=== PATIENT | female | born 1975 | race Caucasian/White ===

== ENCOUNTER 2016-11-23 15:52 | Emergency (ER) | payer MEDICAID ==
--- NOTE | 2016-11-23 16:32 | ED Physician Chart ---
Chief Complaint/HPI - Patient Information Date Seen:: 11/23/16 Time Seen:: 16:10 Chief Complaint:: left low back pain History of Present Illness:: onset 4 days ago of left low back pain. Denies trauma. No dysuria, chills, fever. Allergies:: Allergies Allergy/AdvReac Type Severity Reaction Status Date / Time No Known Allergies Allergy Verified 08/16/16 00:04 Vitals:: Vital Signs - 8 hr 11/23/16 16:01 Temp 98.5 F HR 87 RR 16 BP 150/90 Historian:: Patient Review:: Nurse's Note Reviewed Review of Systems - Review of Systems General/Constitutional: No fever, No chills Skin: No skin lesions Head: No headache Eyes: No loss of vision ENT: No earache Neck: No neck pain, No swelling Cardio Vascular: No chest pain Pulmonary: No SOB GI: No nausea, No vomiting G/U: No dysuria, No hematuria Musculoskeletal: Back pain Endocrine: No polyuria, No polydipsia Psychiatric: Prior psych history Hematopoietic: No bruising Neurological: No syncope Past Medical History - Past Medical History Past Medical History: HTN, Other (anxiety; vertigo) Family History: HTN Social History: Smoker, Other (smokes 3 cigarets per day) Surgical History: Appendectomy, other (tubal ligation) Psychiatricy History: Other (anxiety) Medication: Reviewed Family Medical History - Family Member Father Ethnicity: Living Status: Still Living Hx Family Hypertension: Yes Hx Family Diabetes: Yes Mother Ethnicity: Living Status: Still Living Hx Family Cancer: Yes (BREAST) Physical Exam - Physical Examination General/Constitutional: Well-developed, well-nourished, Alert, No distress Head: Atraumatic Eyes: Lids, conjuctiva normal, PERRL Skin: Nl inspection, No rash ENMT: External ears, nose nl, TM canals nl, Nasal exam nl, Lips, teeth, gums nl , Oropharynx nl, Tonsils nl Neck: No nuchal rigidity Respiratory: Nl effort/Exclusion, Clear to Auscultation, No Wheeze/Rhonchi/Rales Cardio Vascular: RRR, No murmur, gallop, rubs, NL S1 S2 GI: No tenderness/rebounding/guarding, No organomegaly, No hernia, Normal BS's : No CVA tenderness Extremities: No tenderness or effusion Other Extremities comments:: straight leg raising of 90 degrees bilaterally Other Neuro/Psych comments:: DTRs: knees 1.4; ankles 2/4 Misc: Normal back Labs/Radiology/EKG Results - Lab Results Results: Laboratory Results - last 24 hr 11/23/16 11/23/16 16:10 16:10 Urine Source CLEAN C Urine Color YELLOW Urine Clarity HAZY Urine pH 6.5 Ur Specific [place] 1.025 Urine Protein NEGATIVE Urine Glucose (UA) NEGATIVE Urine Ketones TRACE Urine Blood TRACE Urine Nitrate NEGATIVE Urine Bilirubin NEGATIVE Urine Urobilinogen 1.0 Ur Leukocyte Esterase NEGATIVE Urine RBC 2-5 Urine WBC 0-2 Ur Epithelial Cells MODERATE Urine Bacteria NONE SEEN Urine Test NEGATIVE Assessment - Assessment General Assessment: at 1800 patient's pain is improved. ED Septic Shock - . Is Septic Shock (SBP<90, OR Lactate>4 mmol\L) present?: No - <6hrs of presentation: Vital Signs: Vital Signs - 8 hr 11/23/16 16:01 Temp 98.5 F HR 87 RR 16 BP 150/90 Reassessment (Disposition) - Reassessment Reassessment Condition:: Improved - Diagnosis Diagnosis:: Musculoskeletal back pain - Aftercare/Follow up Instructions Aftercare/Follow-Up Instructions:: Refer to Discharge Instructions - Patient Disposition Discharge/Transfer:: Home Condition at Disposition:: Stable, Improved
[2016-11-23 17:33] LABS: URINE BILIRUBIN NEGATIVE (NEGATIVE); URINE BLOOD TRACE (NEGATIVE); URINE COLOR YELLOW; URINE GLUCOSE (UA) NEGATIVE (NEGATIVE); URINE KETONE TRACE mg/dL (NEGATIVE); URINE PH 6.5; URINE PROTEIN NEGATIVE (NEGATIVE)
[2016-11-23 17:34] LABS: URINE BACTERIA NONE SEEN /hpf (NONE SEEN); URINE EPITHELIAL CELLS MODERATE /lpf (FEW); URINE WBC 0-2 /hpf (0-5)
== END 2016-11-23 18:20 | disposition home or self-care (01) ==
LOC: ER 15:52
DX: M54.9 Dorsalgia, unspecified (principal); I10 Essential (primary) hypertension; F41.9 Anxiety disorder, unspecified; F17.210 Nicotine dependence, cigarettes, uncomplicated
CPT/HCPCS: 99283; 96372; 81001; 81025; J1885; Z7502

== ENCOUNTER 2016-12-11 10:01 | Emergency (ER) | payer MEDICAID ==
--- NOTE | 2016-12-11 10:36 | ED Physician Chart ---
Chief Complaint/HPI - Patient Information Date Seen:: 12/11/16 Time Seen:: 10:11 Chief Complaint:: back pain History of Present Illness:: This is a 41 yr old female with right lower back pain. The back pain started this am and she has been having back problems since she was a child. The denies any recent fall or lifting that would cause her back to start hurting again. She states she hypertension but not taking mediation for it. Allergies:: Allergies Allergy/AdvReac Type Severity Reaction Status Date / Time No Known Allergies Allergy Verified 12/11/16 10:06 Vitals:: Vital Signs - 8 hr 12/11/16 10:05 Temp 96.5 F HR 112 RR 18 BP 149/99 O2 Sat % 98 Historian:: Patient, Medical Records Review:: Nurse's Note Reviewed, Old Chart Reviewed Review of Systems - Review of Systems General/Constitutional: No fever, No chills, No weight loss, No weakness, No diaphoresis, No edema, No loss of appetite Skin: No skin lesions, No rash, No bruising Head: No headache, No light-headedness Eyes: No loss of vision, No pain, No diplopia ENT: No earache, No nasal drainage, No sore throat, No tinnitus Neck: No neck pain, No swelling, No thyromegaly, No stiffness, No mass noted Cardio Vascular: No chest pain, No palpitations, No PND, No orthopnea, No edema Pulmonary: No SOB, No cough, No sputum, No wheezing GI: No nausea, No vomiting, No diarrhea, No pain, No melena, No hematochezia, No constipation, No hematemesis G/U: No dysuria, No frequency, No hematuria Musculoskeletal: No bone or joint pain, Back pain, No muscle pain Endocrine: No polyuria, No polydipsia Psychiatric: No prior psych history, No depression, No anxiety, No suicidal ideation Hematopoietic: No bruising, No lymphadenopathy Allergic/Immuno: No urticaria, No angioedema Neurological: No syncope, No focal symptoms, No weakness, No paresthesia, No headache, No seizure, No dizziness, No confusion, No vertigo Past Medical History - Past Medical History Obtainable: Yes Past Medical History: HTN Family History: Heart disease, Diabetes Melitus, HTN, Other ( hypercholesterolemia) Social History: Smoker, No Alcohol, Illicit Drug Use Surgical History: Appendectomy, other (tubalization) Psychiatricy History: Other (anxiety) Medication: Reviewed Family Medical History - Family Member Father History Unknown: Yes Ethnicity: Living Status: Still Living Hx Family Hypertension: Yes Hx Family Diabetes: Yes Mother Ethnicity: Living Status: Still Living Hx Family Cancer: Yes (BREAST) Physical Exam - Physical Examination General/Constitutional: Awake, Well-developed, well-nourished, Alert, No distress, GCS 15, Non-toxic appearing, Ambulatory Head: Atraumatic Eyes: Lids, conjuctiva normal, PERRL, EOMI Skin: Nl inspection, No rash, No skin lesions, No ecchymosis, Well hydrated, No lymphadenopathy ENMT: External ears, nose nl, Nasal exam nl, Lips, teeth, gums nl Neck: Nontender, Full ROM w/o pain, No JVD, No nuchal rigidity, No bruit, No mass, No stridor Respiratory: Nl effort/Exclusion, Clear to Auscultation, No Wheeze/Rhonchi/Rales Cardio Vascular: RRR, No murmur, gallop, rubs, NL S1 S2 GI: No tenderness/rebounding/guarding, No organomegaly, No hernia, Normal BS's, Nondistended, No mass/bruits, No McBurney tenderness : No CVA tenderness Extremities: No tenderness or effusion, Full ROM, normal strength in all extremities, No edema, Normal digits & nails Neuro/Psych: Alert/oriented, DTR's symmetric, Normal sensory exam, Normal motor strength, Judgement/insight normal, Mood normal, Normal gait, No focal deficits Misc: No paraspinal tenderness Other Misc comments:: There is tenderness in the L4 -S1 area on the right side. The range of motion in painful but normal. Labs/Radiology/EKG Results - Lab Results Results: Abnormal Lab Results 12/11/16 12/11/16 12/11/16 10:40 10:40 10:40 WBC 10.4 RBC 4.95 Hgb 14.8 Hct 42.9 MCV 86.6 MCH 29.8 MCHC Differential 34.5 RDW 12.2 Plt Count 372 MPV 8.6 Neutrophils % 69.9 Lymphocytes % 25.2 Monocytes % 3.4 Eosinophils % 1.5 Basophils % 0.0 Sodium Potassium Chloride Carbon Dioxide Anion Gap BUN Creatinine Est GFR ( Amer) Est GFR (Non-Af Amer) BUN/Creatinine Ratio Glucose Hemoglobin A1c % Calcium Total Bilirubin AST ALT Alkaline Phosphatase Total Protein Albumin Globulin Albumin/Globulin Ratio Triglycerides 175 H Cholesterol 170 LDL Cholesterol Direct 94 HDL Cholesterol 58 Urine Source CLEAN C Urine Color YELLOW Urine Clarity HAZY Urine pH 6.0 Ur Specific [place] 1.025 Urine Protein NEGATIVE Urine Glucose (UA) NEGATIVE Urine Ketones TRACE Urine Blood SMALL H Urine Nitrate NEGATIVE Urine Bilirubin SMALL H Urine Urobilinogen 1.0 Ur Leukocyte Esterase NEGATIVE Urine RBC 2-5 Urine WBC 0-2 Ur Epithelial Cells MANY Urine Bacteria FEW Urine Opiates Screen Ur Barbiturates Screen Ur Phencyclidine Scrn Amphetamines Screen U Methamphetamines Scrn U Benzodiazepines Scrn U Cocaine Metab Screen U Cannabinoids Screen 12/11/16 12/11/16 12/11/16 10:40 10:40 10:40 WBC RBC Hgb Hct MCV MCH MCHC Differential RDW Plt Count MPV Neutrophils % Lymphocytes % Monocytes % Eosinophils % Basophils % Sodium 133 L Potassium 3.7 Chloride 103 Carbon Dioxide 25.3 Anion Gap 8.4 BUN 11 Creatinine 0.7 Est GFR ( Amer) > 60.0 Est GFR (Non-Af Amer) > 60.0 BUN/Creatinine Ratio 15.7 Glucose 119 H Hemoglobin A1c % 5.3 Calcium 9.6 Total Bilirubin 0.6 AST 35 ALT 45 Alkaline Phosphatase 75 Total Protein 7.3 Albumin 4.1 Globulin 3.2 Albumin/Globulin Ratio 1.3 Triglycerides Cholesterol LDL Cholesterol Direct HDL Cholesterol Urine Source Urine Color Urine Clarity Urine pH Ur Specific [place] Urine Protein Urine Glucose (UA) Urine Ketones Urine Blood Urine Nitrate Urine Bilirubin Urine Urobilinogen Ur Leukocyte Esterase Urine RBC Urine WBC Ur Epithelial Cells Urine Bacteria Urine Opiates Screen NEGATIVE Ur Barbiturates Screen NEGATIVE Ur Phencyclidine Scrn NEGATIVE Amphetamines Screen POSITIVE H U Methamphetamines Scrn POSITIVE H U Benzodiazepines Scrn NEGATIVE U Cocaine Metab Screen NEGATIVE U Cannabinoids Screen POSITIVE H ED Septic Shock - . Is Septic Shock (SBP<90, OR Lactate>4 mmol\L) present?: No - <6hrs of presentation: Vital Signs: Vital Signs - 8 hr 12/11/16 10:05 Temp 96.5 F HR 112 RR 18 BP 149/99 O2 Sat % 98 Reassessment (Disposition) - Reassessment Reassessment Condition:: Improved - Diagnosis Diagnosis:: back pain drug abuse (meth/amphet) - Aftercare/Follow up Instructions Aftercare/Follow-Up Instructions:: Counseled pt regarding lab results/diagnosis & need follow up, Refer to Discharge Instructions, Counseled pt & family regarding lab results/diagnosis & need follow up - Patient Disposition Discharge/Transfer:: Home Condition at Disposition:: Improved ED Discharge Plan - Patient Disposition Admit/Discharge/Transfer: PT DISCHARGED HOME Condition at Disposition: Improved Prescriptions: Gabapentin [Neurontin] 600 mg PO Q8HR PRN #20 tablet PRN Reason: Pain (Mild) Instructions: Back Pain, Adult Accepting Physician: Erasmo Kay [Other] - 1-3 Days
[2016-12-11 10:58] LABS: URINE COLOR YELLOW; URINE GLUCOSE (UA) NEGATIVE (NEGATIVE)
[2016-12-11 10:59] LABS: % EOSINOPHILS 1.5 % (0.0-5.0); % LYMPHOCYTES 25.2 % (20.0-50.0); % MONOCYTES 3.4 % (2.0-10.0); % NEUTROPHILS 69.9 % (40.0-80.0); HEMATOCRIT 42.9 % (35.0-45.0); HEMOGLOBIN 14.8 gm/dL (11.7-15.5); MEAN CELL VOLUME 86.6 fl (81-100); MEAN CORPUSCULAR HEMOGLOBIN 29.8 pg (27.0-31.0); MEAN CORPUSCULAR HGB CONC 34.5 pg (28.0-36.0); MEAN PLATELET VOLUME 8.6 fl; NEUTROPHILE ABSOLUTE 7.2 Th/cmm (1.8-8.0); PLATELET COUNT 372 Th/cmm (150-400); RED BLOOD COUNT 4.95 Mil/cmm (3.80-5.10); RED CELL DISTRIBUTION WIDTH 12.2 % (11.5-20.0); URINE BILIRUBIN SMALL (NEGATIVE); URINE BLOOD SMALL (NEGATIVE); URINE KETONE TRACE mg/dL (NEGATIVE); URINE PROTEIN NEGATIVE (NEGATIVE); WHITE BLOOD COUNT 10.4 Th/cmm (4.8-10.8)
[2016-12-11 11:07] LABS: URINE BACTERIA FEW /hpf (NONE SEEN); URINE EPITHELIAL CELLS MANY /lpf (FEW); URINE WBC 0-2 /hpf (0-5)
[2016-12-11 11:15] LABS: AMPHETAMINE URINE POSITIVE (NEGATIVE); BARBITURATES URINE NEGATIVE (NEGATIVE)
[2016-12-11 11:16] LABS: ALB/GLOB RATIO 1.3 (1.0-1.8); ALKALINE PHOSPHATASE 75 U/L (34-104); ANION GAP 8.4 (7.0-16.0); BILIRUBIN,TOTAL 0.6 mg/dL (0.3-1.0); BUN - UREA NITROGEN 11 mg/dL (7-25); BUN/CREATININE RATIO 15.7; CALCIUM SERUM 9.6 mg/dL (8.6-10.3); CARBON DIOXIDE 25.3 mEq/L (21.0-31.0); CHLORIDE 103 mEq/L (98-107); CREATININE - SERUM 0.7 mg/dL (0.6-1.2); GLUCOSE 119 mg/dL (70-105); POTASSIUM SERUM 3.7 mEq/L (3.5-5.1); SGOT 35 U/L (13-39); SGPT/ALT 45 U/L (7-52); SODIUM SERUM 133 mEq/L (136-145)
[2016-12-11 11:17] LABS: CHOLESTEROL 170 mg/dL (<200); TRIGLYCERIDES 175 mg/dL (<150)
--- NOTE | 2016-12-11 11:39 | Diagnostic Imaging Report ---
CT scan lumbar spine HISTORY: Pain Total DLP equals 1301 CTDI equals 47.8 Axial sections were obtained through the lumbar spine. Additional sagittal and coronal reformatted images are provided. The exam of the L5-S1 level demonstrates narrowing of the disc interspace. Spur formation seen about the endplates with minimal encroachment on the anterior spinal canal. Alignment is normal. No other significant extradural abnormalities are seen. No acute abnormalities. No fractures. IMPRESSION: 1. No acute abnormalities 2. Degenerative changes somewhat most pronounced at L5-S1
== END 2016-12-11 12:02 | disposition home or self-care (01) ==
LOC: ER 10:01
DX: M54.5 Low back pain (principal); F15.10 Other stimulant abuse, uncomplicated; I10 Essential (primary) hypertension; F17.200 Nicotine dependence, unspecified, uncomplicated
CPT/HCPCS: 99285; 96372 ×2; 72131; 84484; 36415; 86780; 80300; 84443; 86592; 86593; 85025; 81001; 83036; 80053; 80061; J1885; J2930

== ENCOUNTER 2016-12-17 11:53 | Emergency (ER) | payer MEDICAID ==
--- NOTE | 2016-12-17 12:56 | ED Physician Chart ---
Chief Complaint/HPI - Patient Information Date Seen:: 12/17/16 Time Seen:: 12:30 Allergies:: Allergies Allergy/AdvReac Type Severity Reaction Status Date / Time No Known Allergies Allergy Verified 12/11/16 10:50 Vitals:: Vital Signs - 8 hr 12/17/16 12:27 Temp 97.8 F HR 97 RR 21 BP 143/82 O2 Sat % 98 Historian:: Patient, Family Member Review:: Nurse's Note Reviewed Review of Systems - Review of Systems General/Constitutional: Fever, No weight loss, Loss of appetite Skin: No rash Head: No headache Eyes: No loss of vision, No pain ENT: No earache, No sore throat, No tinnitus Neck: No neck pain, No stiffness Cardio Vascular: No chest pain, No palpitations Pulmonary: No SOB, No cough, No wheezing GI: Nausea, Vomiting, Diarrhea, Pain, No melena, No hematochezia, No hematemesis G/U: No dysuria, No frequency, No hematuria Substation Manager: No vaginal discharge, No abnormal vaginal bleed Musculoskeletal: Back pain, Muscle pain Psychiatric: Depression Hematopoietic: No bruising Allergic/Immuno: No urticaria Neurological: No syncope Past Medical History - Past Medical History Past Medical History: HTN, Other (fibromyalgia) Social History: Smoker, Single Surgical History: Appendectomy (BTL) Psychiatricy History: Depression Family Medical History - Family Member Father History Unknown: Yes (- ill contacts) Ethnicity: Living Status: Still Living Hx Family Hypertension: Yes Hx Family Diabetes: Yes Mother Ethnicity: Living Status: Still Living Hx Family Cancer: Yes (BREAST) Physical Exam - Physical Examination General/Constitutional: Awake, Alert, Non-toxic appearing Head: Atraumatic Eyes: PERRL, EOMI Skin: Nl inspection, No rash, No skin lesions, Well hydrated ENMT: Nasal exam nl, Lips, teeth, gums nl, Oropharynx nl, Tonsils nl Neck: Nontender, Full ROM w/o pain, No nuchal rigidity, No mass, No stridor Respiratory: Nl effort/Exclusion, Clear to Auscultation, No Wheeze/Rhonchi/Rales Cardio Vascular: RRR, No murmur, gallop, rubs, NL S1 S2 GI: No organomegaly, No hernia, Nondistended, No McBurney tenderness (BS reduced , soft, flat, mildly tender over midepigastrium) : No CVA tenderness Extremities: No tenderness or effusion, normal strength in all extremities, No edema, Normal digits & nails Neuro/Psych: Alert/oriented, Normal sensory exam, Normal motor strength, Judgement/insight normal, Mood normal, No focal deficits (mildly tender to percussion L4-5 bilat, mild) ED Septic Shock - . Is Septic Shock (SBP<90, OR Lactate>4 mmol\L) present?: No - <6hrs of presentation: Vital Signs: Vital Signs - 8 hr 12/17/16 12:27 Temp 97.8 F HR 97 RR 21 BP 143/82 O2 Sat % 98 Reassessment (Disposition) - Reassessment Reassessment Condition:: Improved - Diagnosis Diagnosis:: Nausea, vomit, diarrhea - Aftercare/Follow up Instructions Aftercare/Follow-Up Instructions:: Counseled pt regarding lab results/diagnosis & need follow up Medication Prescribed:: zofran 4mg ODT 1 on tongue q 4h prn nausea, immodium OTC. - Patient Disposition Discharge/Transfer:: Home
[2016-12-17 13:24] LABS: URINE BLOOD MODERATE (NEGATIVE); URINE COLOR YELLOW; URINE GLUCOSE (UA) NEGATIVE (NEGATIVE); URINE KETONE TRACE mg/dL (NEGATIVE); URINE PH 5.5; URINE PROTEIN TRACE mg/dL (NEGATIVE)
[2016-12-17 13:25] LABS: URINE BILIRUBIN SMALL (NEGATIVE); URINE EPITHELIAL CELLS MANY /lpf (FEW); URINE WBC 0-2 /hpf (0-5)
[2016-12-17 13:26] LABS: URINE BACTERIA MODERATE /hpf (NONE SEEN)
== END 2016-12-17 13:33 | disposition home or self-care (01) ==
LOC: ER 11:53
DX: R11.2 Nausea with vomiting, unspecified (principal); R19.7 Diarrhea, unspecified; I10 Essential (primary) hypertension; F17.200 Nicotine dependence, unspecified, uncomplicated
CPT/HCPCS: 99283; 81001; Q0162; Z7502

== ENCOUNTER 2017-05-29 20:29 | Emergency (ER) | payer MEDICAID ==
--- NOTE | 2017-05-29 21:09 | ED Physician Chart ---
Chief Complaint/HPI - Patient Information Date Seen:: 05/29/17 Time Seen:: 21:04 Chief Complaint:: dizzy History of Present Illness:: pt woke 2 am w felt ok but as soon as moved head felt vertiog sensation. pt had meclizine and tried it this am wo relief. pt had brief episdoe months ago that resolved after hrs. also pt had meclizine which was given to her after dizziness in past but no formal dx of vertigo was made and it wasnt clear if bp meds were the trouble. pt did take her bp med this am. she is not usually compliant w her regular meds. pt has hx of fibromylagia and has had inc muscle aches at left shldr/neck area lately. no fever, no sob. no cp. no palpitations. no focal weakness. some numbness in b shldrs (chronic, no acute change), no neck pain . no recent trauma. no MEDINA. no n/v/d. Allergies:: Allergies Allergy/AdvReac Type Severity Reaction Status Date / Time No Known Allergies Allergy Verified 12/11/16 10:50 Vitals:: Vital Signs - 8 hr 05/29/17 20:55 Temp 98.5 F HR 87 RR 18 BP 132/84 O2 Sat % 97 Historian:: Patient Review of Systems - Review of Systems General/Constitutional: No fever, No chills, No weight loss, No weakness, No diaphoresis, No edema, No loss of appetite Skin: No skin lesions, No rash, No bruising Head: No headache, No light-headedness, Other (dizzy worse w head mvt) Eyes: No loss of vision, No pain, No diplopia ENT: No earache, No nasal drainage, No sore throat, No tinnitus Neck: No neck pain, No swelling, No thyromegaly, No stiffness, No mass noted Cardio Vascular: No chest pain, No palpitations, No PND, No orthopnea, No edema Pulmonary: No SOB, No cough, No sputum, No wheezing GI: No nausea, No vomiting, No diarrhea, No pain, No melena, No hematochezia, No constipation, No hematemesis G/U: No dysuria, No frequency, No hematuria Musculoskeletal: No bone or joint pain, No back pain, No muscle pain Endocrine: No polyuria, No polydipsia Psychiatric: No prior psych history, No depression, No anxiety, No suicidal ideation Hematopoietic: No bruising, No lymphadenopathy Allergic/Immuno: No urticaria, No angioedema Neurological: No syncope, No focal symptoms, No weakness, No paresthesia, No headache, No seizure, No dizziness, No confusion, No vertigo Past Medical History - Past Medical History Past Medical History: HTN, Other (?prior vertigo) Social History: Smoker, No Alcohol Medication: Reviewed Family Medical History - Family Member Father History Unknown: Yes Ethnicity: Living Status: Still Living Hx Family Hypertension: Yes Hx Family Diabetes: Yes Mother Ethnicity: Living Status: Still Living Hx Family Cancer: Yes (BREAST) Physical Exam - Physical Examination General/Constitutional: Awake, Well-developed, well-nourished, Alert, No distress, GCS 15, Non-toxic appearing, Ambulatory Other Gen/Cons comments:: alert, dramatic. no focal neuro loss. nontoxic. eomi x 8 .. no obv nystagmus. neck supple. no rash. tm's clear bilat Head: Atraumatic Eyes: Lids, conjuctiva normal, PERRL, EOMI Skin: Nl inspection, No rash, No skin lesions, No ecchymosis, Well hydrated, No lymphadenopathy ENMT: External ears, nose nl, Nasal exam nl, Lips, teeth, gums nl Neck: Nontender, Full ROM w/o pain, No JVD, No nuchal rigidity, No bruit, No mass, No stridor Respiratory: Nl effort/Exclusion, Clear to Auscultation, No Wheeze/Rhonchi/Rales Cardio Vascular: RRR, No murmur, gallop, rubs, NL S1 S2 GI: No tenderness/rebounding/guarding, No organomegaly, No hernia, Normal BS's, Nondistended, No mass/bruits, No McBurney tenderness : No CVA tenderness Extremities: No tenderness or effusion, Full ROM, normal strength in all extremities, No edema, Normal digits & nails Neuro/Psych: Alert/oriented, DTR's symmetric, Normal sensory exam, Normal motor strength, Judgement/insight normal, Mood normal, Normal gait, No focal deficits Misc: normal gait, Normal back, No paraspinal tenderness Labs/Radiology/EKG Results - Lab Results Results: Laboratory Tests 05/29/17 05/29/17 05/29/17 21:11 21:11 21:11 WBC 10.5 RBC 4.92 Hgb 14.4 Hct 43.2 MCV 87.8 MCH 29.2 MCHC Differential 33.2 RDW 12.5 Plt Count 396 MPV 8.1 Neutrophils % 60.4 Lymphocytes % 25.4 Monocytes % 8.5 Eosinophils % 2.7 Basophils % 3.0 H Sodium 134 L Potassium 3.4 L Chloride 104 Carbon Dioxide 25.1 Anion Gap 8.3 BUN 11 Creatinine 0.8 Est GFR ( Amer) > 60.0 Est GFR (Non-Af Amer) > 60.0 BUN/Creatinine Ratio 13.8 Glucose 119 H Calcium 9.2 Total Bilirubin 0.4 AST 23 ALT 24 Alkaline Phosphatase 65 Troponin I 0.01 Total Protein 6.8 Albumin 3.8 Globulin 3.0 Albumin/Globulin Ratio 1.3 Urine Test 05/29/17 21:30 WBC RBC Hgb Hct MCV MCH MCHC Differential RDW Plt Count MPV Neutrophils % Lymphocytes % Monocytes % Eosinophils % Basophils % Sodium Potassium Chloride Carbon Dioxide Anion Gap BUN Creatinine Est GFR ( Amer) Est GFR (Non-Af Amer) BUN/Creatinine Ratio Glucose Calcium Total Bilirubin AST ALT Alkaline Phosphatase Troponin I Total Protein Albumin Globulin Albumin/Globulin Ratio Urine Test NEGATIVE - Radiology Results Results: ct head nad//rt maxillary sinusitus - EKG Interpretations EKG Time:: 21:15 Rate & Rhythm: nsr [address] [place]: 41 Intervals: qtc 447 Comments:: nrml ecg..early rt bbb changes. no acute injury or zoila arryhtmia ED Septic Shock - . Is Septic Shock (SBP<90, OR Lactate>4 mmol\L) present?: No - <6hrs of presentation: Vital Signs: Vital Signs - 8 hr 05/29/17 20:55 Temp 98.5 F HR 87 RR 18 BP 132/84 O2 Sat % 97 Reassessment (Disposition) - Reassessment Reassessment:: dw pt all results. pt still says is dizzy some. offered pt admission but she refuses says wants to try meclizine at home. she has a son at home so is not alone. no instability during ed stay. no neuro change. ct head ok. pt requested and was given a steroid shot which she says has helped her fibromyalgia in past. Reassessment Condition:: Improved - Diagnosis Diagnosis:: 1 vertigo 2 sinusitus 3 fibromyalgia - Aftercare/Follow up Instructions Aftercare/Follow-Up Instructions:: Counseled pt regarding lab results/diagnosis & need follow up Medication Prescribed:: rx meclizine, amox - Patient Disposition Discharge/Transfer:: Home Condition at Disposition:: Improved
[2017-05-29 21:17] LABS: % EOSINOPHILS 2.7 % (0.0-5.0); % LYMPHOCYTES 25.4 % (20.0-50.0); % MONOCYTES 8.5 % (2.0-10.0); % NEUTROPHILS 60.4 % (40.0-80.0); HEMATOCRIT 43.2 % (35.0-45.0); HEMOGLOBIN 14.4 gm/dL (11.7-15.5); MEAN CELL VOLUME 87.8 fl (81-100); MEAN CORPUSCULAR HEMOGLOBIN 29.2 pg (27.0-31.0); MEAN CORPUSCULAR HGB CONC 33.2 pg (28.0-36.0); MEAN PLATELET VOLUME 8.1 fl; NEUTROPHILE ABSOLUTE 6.3 Th/cmm (1.8-8.0); PLATELET COUNT 396 Th/cmm (150-400); RED BLOOD COUNT 4.92 Mil/cmm (3.80-5.10); RED CELL DISTRIBUTION WIDTH 12.5 % (11.5-20.0); WHITE BLOOD COUNT 10.5 Th/cmm (4.8-10.8)
[2017-05-29 21:35] LABS: ALB/GLOB RATIO 1.3 (1.0-1.8); ALKALINE PHOSPHATASE 65 U/L (34-104); ANION GAP 8.3 (7.0-16.0); BILIRUBIN,TOTAL 0.4 mg/dL (0.3-1.0); BUN - UREA NITROGEN 11 mg/dL (7-25); BUN/CREATININE RATIO 13.8; CALCIUM SERUM 9.2 mg/dL (8.6-10.3); CARBON DIOXIDE 25.1 mEq/L (21.0-31.0); CHLORIDE 104 mEq/L (98-107); CREATININE - SERUM 0.8 mg/dL (0.6-1.2); GLUCOSE 119 mg/dL (70-105); POTASSIUM SERUM 3.4 mEq/L (3.5-5.1); SGOT 23 U/L (13-39); SGPT/ALT 24 U/L (7-52); SODIUM SERUM 134 mEq/L (136-145)
[2017-05-29] MEDS ORDERED: methylPREDNISolone SS 40 mg Vial ONE (23:09)
--- NOTE | 2017-05-30 10:28 | Diagnostic Imaging Report ---
CT scan of the brain without contrast History: Dizziness Total DLP equals 631 CTDI equals 34.4 Axial sections were obtained from the base of the skull to the vertex. There is a normal ventricular system size. No focal parenchymal lesions are seen. No evidence of any mass effect or shift of midline structures. No extra-axial masses or abnormal fluid collections. Right maxillary sinusitis. Impression: Negative examination
== END 2017-05-29 23:35 | disposition home or self-care (01) ==
LOC: ER 20:29
DX: R42 Dizziness and giddiness (principal); J32.9 Chronic sinusitis, unspecified; M79.7 Fibromyalgia; I10 Essential (primary) hypertension; F17.200 Nicotine dependence, unspecified, uncomplicated
CPT/HCPCS: 99285; 96372; 96374; 93005; 70450; 84484; 36415; 85025; 81025; 80053; J2405; J2920

== ENCOUNTER 2017-09-20 06:15 | Emergency (ER) | payer MEDICAID ==
--- NOTE | 2017-09-20 07:28 | ED Physician Chart ---
ED Chief Complaint/HPI - Patient Information Date Seen:: 09/20/17 Time Seen:: 07:00 Chief Complaint:: hair loss History of Present Illness:: patient noted an asymptomatic bald spot on her scalp this am; does not know how long it's been there. Requests injection for her neck and back pain which which is secondary to her fibromyalgia. Allergies:: Allergies Allergy/AdvReac Type Severity Reaction Status Date / Time No Known Allergies Allergy Verified 12/11/16 10:50 Vitals:: Vital Signs - 8 hr 09/20/17 09/20/17 06:20 07:03 Temp 97.5 F 97.5 F HR 102 102 RR 19 16 BP 151/92 151/92 O2 Sat % 100 100 Historian:: Patient Review:: Nurse's Note Reviewed ED Review of Systems - Review of Systems General/Constitutional: No fever, No chills Skin: Skin lesions Head: No headache Eyes: No loss of vision ENT: No earache Neck: Neck pain Cardio Vascular: No chest pain, No palpitations Pulmonary: No SOB GI: No nausea, No vomiting G/U: No dysuria Musculoskeletal: Bone or joint pain, Back pain Psychiatric: No prior psych history, No depression, No anxiety Hematopoietic: No bruising Allergic/Immuno: No urticaria Neurological: No syncope ED Past Medical History - Past Medical History Past Medical History: HTN, Other (fibromyalgia) Family History: None Social History: Smoker, Other (smokes 3 cigarets per day) Surgical History: Appendectomy, other (tubal ligation) Psychiatricy History: None Medication: Reviewed Family Medical History - Family Member Father History Unknown: Yes Ethnicity: Non- Living Status: Still Living Hx Family Hypertension: Yes Hx Family Diabetes: Yes Mother Ethnicity: Living Status: Still Living Hx Family Cancer: Yes (BREAST) ED Physical Exam - Physical Examination General/Constitutional: Well-developed, well-nourished, Alert, No distress Head: Atraumatic Eyes: Lids, conjuctiva normal Other Skin comments:: 3 cm bald spot superior midline occiput ENMT: External ears, nose nl, TM canals nl, Nasal exam nl, Lips, teeth, gums nl , Oropharynx nl, Tonsils nl Neck: No nuchal rigidity Respiratory: Nl effort/Exclusion, Clear to Auscultation, No Wheeze/Rhonchi/Rales Cardio Vascular: RRR, No murmur, gallop, rubs GI: No tenderness/rebounding/guarding, No organomegaly, No hernia, Normal BS's : No CVA tenderness Extremities: Normal digits & nails Neuro/Psych: No focal deficits Misc: No paraspinal tenderness ED Septic Shock - . Is Septic Shock (SBP<90, OR Lactate>4 mmol\L) present?: No - <6hrs of presentation: Vital Signs: Vital Signs - 8 hr 09/20/17 09/20/17 06:20 07:03 Temp 97.5 F 97.5 F HR 102 102 RR 19 16 BP 151/92 151/92 O2 Sat % 100 100 ED Reassessment (Disposition) - Reassessment Reassessment Condition:: Unchanged (alopecia) - Diagnosis Diagnosis:: alopecia areata; musculoskeletal pain - Aftercare/Follow up Instructions Aftercare/Follow-Up Instructions:: Refer to Discharge Instructions Medication Prescribed:: aristocort 0.1% 15 gm tube ED Discharge Plan - Patient Disposition Instructions: Alopecia Areata
== END 2017-09-20 07:45 | disposition home or self-care (01) ==
LOC: ER 06:15
DX: L63.9 Alopecia areata, unspecified (principal); M79.1 Myalgia; I10 Essential (primary) hypertension; F17.210 Nicotine dependence, cigarettes, uncomplicated
CPT/HCPCS: 99283; 96372; J1885; Z7502

== ENCOUNTER 2018-06-17 23:12 | Emergency (ER) | payer MEDICAID ==
[2018-06-18 00:40] LABS: % BASOPHILS 0.4 % (0.0-2.0); % EOSINOPHILS 1.1 % (0.0-5.0); % LYMPHOCYTES 17.8 % (20.0-50.0); % MONOCYTES 7.5 % (2.0-10.0); % NEUTROPHILS 73.2 % (40.0-80.0); BASOPHILE ABSOLUTE 0.1 Th/cumm (0-0.2); EOSINOPHILE ABSOLUTE 0.1 Th/cmm (0.1-0.4); HEMATOCRIT 41.4 % (41.0-60); LYMPHOCYTE ABSOLUTE 2.3 Th/cmm (1.5-3.0); MEAN CELL VOLUME 89.3 fl (81-100); MEAN CORPUSCULAR HEMOGLOBIN 30.2 pg (27.0-31.0); MEAN CORPUSCULAR HGB CONC 33.8 pg (28.0-36.0); MEAN PLATELET VOLUME 7.8 fl; NEUTROPHILE ABSOLUTE 9.2 Th/cmm (1.8-8.0); PLATELET COUNT 364 Th/cmm (150-400); RED BLOOD COUNT 4.64 Mil/cmm (3.80-5.10); RED CELL DISTRIBUTION WIDTH 12.1 % (11.5-20.0); WHITE BLOOD COUNT 12.7 Th/cmm (4.8-10.8)
[2018-06-18 00:58] LABS: ALB/GLOB RATIO 1.3 (1.0-1.8); ALBUMIN 3.5 gm/dL (3.7-5.3); ALKALINE PHOSPHATASE 62 U/L (34-104); ANION GAP 10.2 (7.0-16.0); BILIRUBIN,TOTAL 0.4 mg/dL (0.3-1.0); BUN - UREA NITROGEN 9 mg/dL (7-25); CALCIUM SERUM 8.7 mg/dL (8.6-10.3); CHLORIDE 105 mEq/L (98-107); CREATININE - SERUM 0.8 mg/dL (0.6-1.2); GFR AFRICAN-AMERICAN > 60.0 ml/min (>90); GFR NON AFRICAN-AMERICAN > 60.0 ml/min; GLUCOSE 95 mg/dL (70-105); MAGNESIUM 1.9 mg/dL (1.9-2.7); POTASSIUM SERUM 3.2 mEq/L (3.5-5.1); SGOT 22 U/L (13-39); SGPT/ALT 29 U/L (7-52); SODIUM SERUM 136 mEq/L (136-145); TOTAL PROTEIN,SERUM 6.2 gm/dL (6.0-8.3)
[2018-06-18] MEDS ORDERED: Potassium Chloride 20 mEq ER Tab PO ONE ×2 (01:07→01:54)
[2018-06-18 01:26] LABS: URINE SOURCE CLEAN C
[2018-06-18 01:36] LABS: URINE BILIRUBIN NEGATIVE (NEGATIVE); URINE BLOOD SMALL (NEGATIVE); URINE GLUCOSE (UA) NEGATIVE (NEGATIVE); URINE KETONE NEGATIVE (NEGATIVE); URINE LEUKOCYTE ESTERASE NEGATIVE (NEGATIVE); URINE MICROSCOPIC INDICATED? YES; URINE NITRATE NEGATIVE (NEGATIVE); URINE PROTEIN NEGATIVE (NEGATIVE); URINE UROBILINOGEN 0.2 E.U./dL (0.2 - 1.0)
[2018-06-18 01:43] LABS: AMPHETAMINE URINE POSITIVE (NEGATIVE); BARBITURATES URINE NEGATIVE (NEGATIVE); COCAINE METABOLITE QUAL URINE NEGATIVE (NEGATIVE); METHAMPHETAMINES QUAL URINE POSITIVE (NEGATIVE); OPIATES (MORPHINE) QUAL. URINE NEGATIVE (NEGATIVE); PHENCYCLIDINE (PCP) URINE NEGATIVE (NEGATIVE); TRICYCLICS (TCA) QUAL. URINE NEGATIVE (NEGATIVE)
[2018-06-18 01:44] LABS: BENZODIAZEPINES QUAL URINE NEGATIVE (NEGATIVE); CANNABINOID THC POSITIVE (NEGATIVE); METHADONE URINE NEGATIVE (NEGATIVE)
[2018-06-18 01:45] LABS: URINE CLARITY CLEAR (CLEAR); URINE COLOR YELLOW
[2018-06-18 02:01] LABS: URINE BACTERIA FEW /hpf (NONE SEEN); URINE EPITHELIAL CELLS MODERATE /lpf (FEW); URINE WBC 0-2 /hpf (0-5)
--- NOTE | 2018-07-16 12:53 | ER Physician Documentation ---
DATE OF SERVICE: 06/18/2018 A#: [id number]. HISTORY OF PRESENT ILLNESS: The patient is otherwise healthy female who presented with complaint of diarrhea for 3 days and a sore throat for 1 day. She denies any nausea, vomiting or fever. Of note, the patient was recently released from being incarcerated. PAST MEDICAL HISTORY: Unremarkable except for methamphetamine and cannabis usage. PHYSICAL EXAMINATION: GENERAL: The patient is otherwise healthy, overweight female in no apparent distress. LUNGS: Clear to auscultation bilaterally. COR: Regular rate and rhythm. HEENT: Oropharynx has erythema with exudate present. NECK: Lymphadenopathy is present at the neck area bilaterally. No evidence of tonsillar abscess present. ABDOMEN: Benign. RECTAL: Performed, a small amount of stool on glove, sent to the lab, occult negative. EMERGENCY DEPARTMENT COURSE: A stool culture was written for. The patient was unable to give a stool culture while in the Emergency Room. Blood work was drawn, which included a white count, which came back elevated at 12.7 with potassium, which was low at 3.2. A strep culture was done and came back positive. Diarrhea, concern for infectious cause. I did wrote a prescription for stool culture and sensitivity, which she was advised to bring back before she starts any antibiotics. Hemoccult was also written for on the prescription and the patient was also given antibiotics for discharge, which included ciprofloxacin 500 mg 1 p.o. b.i.d. #20, Bactrim double strength 1 p.o. b.i.d. #20. She was given Bicillin in the ER. ASSESSMENT AND PLAN: 1. Presumed infectious diarrhea. 2. Strep throat. 3. Methamphetamine and cannabis use, which were positive on her drug screen. JOB# [id number]
== END 2018-06-18 02:45 | disposition home or self-care (01) ==
LOC: ER 23:12
DX: K52.9 Noninfective gastroenteritis and colitis, unspecified (principal); J02.0 Streptococcal pharyngitis; F12.10 Cannabis abuse, uncomplicated; F15.10 Other stimulant abuse, uncomplicated
CPT/HCPCS: 99284; 96372; 36415; 80307; 87081; 85025; 81025; 83735; 84100; 80053; 81001; J0561; Z7502

== ENCOUNTER 2018-07-03 23:31 | Emergency (ER) | payer MEDICAID ==
--- NOTE | 2018-07-04 00:17 | ED Physician Chart ---
ED Chief Complaint/HPI - Patient Information Date Seen:: 07/03/18 Time Seen:: 23:40 Chief Complaint:: Redness History of Present Illness:: onset x 2 days of left foot erythema, pain, redness, and swelling; pt denies trauma, LOC, ALOC, AMS, S/T, H/As, neck pain, cough, C/P, SOB, Abd. Pain, A/N/V/ D/C, fever, chills, or urinary s/s; pt's last tetanus shot: < 5 years; UTD; pt denies paresthesias, weakness, dizziness, gait changes, or vertigo Allergies:: Allergies Allergy/AdvReac Type Severity Reaction Status Date / Time No Known Allergies Allergy Verified 06/17/18 23:53 Historian:: Patient Review:: Nurse's Note Reviewed ED Review of Systems - Review of Systems General/Constitutional: No fever, No chills, No weight loss, No weakness, No diaphoresis, No edema, No loss of appetite Skin: No skin lesions, No rash, No bruising Head: No headache, No light-headedness Eyes: No loss of vision, No pain, No diplopia ENT: No earache, No nasal drainage, No sore throat, No tinnitus Neck: No neck pain, No swelling, No thyromegaly, No stiffness, No mass noted Cardio Vascular: No chest pain, No palpitations, No PND, No orthopnea, No edema Pulmonary: No SOB, No cough, No sputum, No wheezing GI: No nausea, No vomiting, No diarrhea, No pain, No melena, No hematochezia, No constipation, No hematemesis G/U: No dysuria, No frequency, No hematuria, No nacturia Operator Maintainer: No vaginal discharge, No abnormal vaginal bleed, No contraction Musculoskeletal: Bone or joint pain, No back pain, Muscle pain Endocrine: No polyuria, No polydipsia Psychiatric: No prior psych history, No depression, No anxiety, No suicidal ideation, No homicidal ideation, No auditory hallucination, No visual hallucination Hematopoietic: No bruising, No lymphadenopathy Allergic/Immuno: No urticaria, No angioedema Neurological: No syncope, No focal symptoms, No weakness, No paresthesia, No headache, No seizure, No dizziness, No confusion, No vertigo ED Past Medical History - Past Medical History Obtainable: Yes Past Medical History: Other (Fibromyalgia) Family History: HTN Social History: Non Smoker, No Alcohol, No Drug Use, Surgical History: None Psychiatricy History: None Medication: Reviewed Family Medical History - Family Member Father History Unknown: Yes Ethnicity: Non- Living Status: Still Living Hx Family Hypertension: Yes Hx Family Diabetes: Yes Mother Ethnicity: Living Status: Still Living Hx Family Cancer: Yes (BREAST) ED Physical Exam - Physical Examination General/Constitutional: Awake, Well-developed, well-nourished, Alert, No distress, GCS 15, Non-toxic appearing, Ambulatory Head: Atraumatic Eyes: Lids, conjuctiva normal, PERRL, EOMI Skin: Nl inspection, No rash, No skin lesions, No ecchymosis, Well hydrated, No lymphadenopathy Other Skin comments:: + Left Foot Localized Cellulitis at the dorsal middle MT region with mild tenderness; no loss of ROMs; no PWs; full active ROMs of all joints; no septic joints; no ligament instability; DTRs: 2+ bilaterally; Gait: WNL; good motor, tendon, and sensory functions; good NV functions ENMT: External ears, nose nl, TM canals nl, Nasal exam nl, Lips, teeth, gums nl , Oropharynx nl, Tonsils nl Neck: Nontender, Full ROM w/o pain, No JVD, No nuchal rigidity, No bruit, No mass, No stridor Other Neck comments:: supple; no meningeal signs; no cervical tenderness; no bruits Respiratory: Nl effort/Exclusion, Clear to Auscultation, No Wheeze/Rhonchi/Rales Cardio Vascular: RRR, No murmur, gallop, rubs, NL S1 S2, Carotid/Femoral/Distal pulses equal bilaterally GI: No tenderness/rebounding/guarding, No organomegaly, No hernia, Normal BS's, Nondistended, No mass/bruits, No McBurney tenderness, Rectum exam nl Other GI comments:: no pulsatile masses : No CVA tenderness Extremities: No tenderness or effusion, Full ROM, normal strength in all extremities, No edema, Normal digits & nails Other Extremities comments:: as above Neuro/Psych: Alert/oriented, DTR's symmetric, Normal sensory exam, Normal motor strength, Judgement/insight normal, Mood normal, Normal gait, No focal deficits Other Neuro/Psych comments:: no focal signs Misc: Normal back, No paraspinal tenderness ED Labs/Radiology/EKG Results - Radiology Results Comments:: X-Rays: deferred by pt ED Septic Shock - . Is Septic Shock (SBP<90, OR Lactate>4 mmol\L) present?: No ED Reassessment (Disposition) - Reassessment Reassessment:: pt is asymptomatic upon discharge Reassessment Condition:: Improved - Diagnosis Diagnosis:: Left Foot Pain; Localized Cellulitis; Left Foot Sprains and Strains; Left Foot Cellulitis - Aftercare/Follow up Instructions Aftercare/Follow-Up Instructions:: Counseled pt regarding lab results/diagnosis & need follow up, Refer to Discharge Instructions, Counseled pt & family regarding lab results/diagnosis & need follow up Medication Prescribed:: Rx: Keflex 500mg po qid x 10 days; Neosporin Ointment bid x 14 days; Warm Compresses/Heating Pads; Tylenol 500mg po qid prn fever/pain; Skin Care/Foot Care Instructions - Patient Disposition Discharge/Transfer:: Home Condition at Disposition:: Stable, Improved (RTER prn if existing s/s reoccur and/or get worse and/or any other new s/s occur; ACIs given for all above Dx; Refer to [employer]/Orthopedist/Vascular Surgeon/[employer] [facility]; F/U with PMD in one day or prn; RTER prn if concerned)
[2018-07-04] MEDS ORDERED: Morphine Sulfate 2 mg/mL 1mL Syr ONE (00:18)
[2018-07-04] MEDS: Morphine Sulfate 2 mg/mL 1mL Syr IM STA (00:21)
== END 2018-07-04 00:30 | disposition home or self-care (01) ==
LOC: ER 23:31
DX: L03.116 Cellulitis of left lower limb (principal); S93.602A Unspecified sprain of left foot, initial encounter; S96.912A Strain of unspecified muscle and tendon at ankle and foot level, left foot, initial encounter; X58.XXXA Exposure to other specified factors, initial encounter; Y93.89 Activity, other specified; Y92.89 Other specified places as the place of occurrence of the external cause; Y99.8 Other external cause status
CPT/HCPCS: 99283; 96372; J2270; Z7502

== ENCOUNTER 2018-10-30 12:45 | Emergency (ER) | payer MEDICAID ==
[2018-10-30] MEDS ORDERED: Morphine Sulfate 2 mg/mL 1mL Syr IV STA (13:04)
[2018-10-30] MEDS ORDERED: Morphine Sulfate 2 mg/mL 1mL Syr ONE (13:12)
[2018-10-30 13:50] LABS: INR 0.92 (0.5-1.4); PROTHROMBIN TIME (TEST) 9.6 SECONDS (9.5-11.5)
--- NOTE | 2018-10-30 13:51 | ED Physician Chart ---
ED Chief Complaint/HPI - Patient Information Date Seen:: 10/30/18 Time Seen:: 13:00 Chief Complaint:: Chest Pain History of Present Illness:: onset x 2 days of intermittent, heavy pressure exertional chest pain radiating to the upper back with sharp upper back pain with dyspnea and cough; pt denies trauma, LOC, ALOC, AMS, H/As, S/T, neck pain, Abd. Pain, A/N/V/D/C, fever, chills, or urinary s/s Allergies:: Allergies Allergy/AdvReac Type Severity Reaction Status Date / Time No Known Allergies Allergy Verified 06/17/18 23:53 Vitals:: Vital Signs - 8 hr 10/30/18 13:02 Temp 97.7 F HR 112 RR 16 BP 160/112 O2 Sat % 100 Historian:: Patient Review:: Nurse's Note Reviewed, Old Chart Reviewed ED Review of Systems - Review of Systems General/Constitutional: No fever, No chills, No weight loss, Weakness, No diaphoresis, No edema, No loss of appetite Skin: No skin lesions, No rash, No bruising Head: Headache, No light-headedness Eyes: No loss of vision, No pain, No diplopia ENT: No earache, No nasal drainage, No sore throat, No tinnitus Neck: No neck pain, No swelling, No thyromegaly, No stiffness, No mass noted Cardio Vascular: Chest pain, No palpitations, No PND, No orthopnea, No edema Pulmonary: SOB, Cough, No sputum, No wheezing GI: No nausea, No vomiting, No diarrhea, No pain, No melena, No hematochezia, No constipation, No hematemesis G/U: No dysuria, No frequency, No hematuria, No nacturia President And Ceo: No vaginal discharge, No abnormal vaginal bleed, No contraction Musculoskeletal: No bone or joint pain, No back pain, No muscle pain Endocrine: No polyuria, No polydipsia Psychiatric: No prior psych history, No depression, No anxiety, No suicidal ideation, No homicidal ideation, No auditory hallucination, No visual hallucination Hematopoietic: No bruising, No lymphadenopathy Allergic/Immuno: No urticaria, No angioedema Neurological: No syncope, No focal symptoms, Weakness, No paresthesia, Headache , No seizure, No dizziness, No confusion, No vertigo ED Past Medical History - Past Medical History Obtainable: Yes Past Medical History: HTN, Asthma/COPD, Arthritis Family History: HTN, Cancer Social History: Smoker, No Alcohol, No Drug Use, Surgical History: Appendectomy, other (BTL) Psychiatricy History: None Medication: Reviewed Family Medical History - Family Member Father History Unknown: Yes Ethnicity: Non- Living Status: Still Living Hx Family Hypertension: Yes Hx Family Diabetes: Yes Mother Ethnicity: Living Status: Still Living Hx Family Cancer: Yes (BREAST) ED Physical Exam - Physical Examination General/Constitutional: Awake, Well-developed, well-nourished, Alert, No distress, GCS 15, Non-toxic appearing, Ambulatory Head: Atraumatic Eyes: Lids, conjuctiva normal, PERRL, EOMI Skin: Nl inspection, No rash, No skin lesions, No ecchymosis, Well hydrated, No lymphadenopathy ENMT: External ears, nose nl, TM canals nl, Nasal exam nl, Lips, teeth, gums nl , Oropharynx nl, Tonsils nl Neck: Nontender, Full ROM w/o pain, No JVD, No nuchal rigidity, No bruit, No mass, No stridor Respiratory: Nl effort/Exclusion, Clear to Auscultation, No Wheeze/Rhonchi/Rales Cardio Vascular: RRR, No murmur, gallop, rubs, NL S1 S2, Carotid/Femoral/Distal pulses equal bilaterally GI: No tenderness/rebounding/guarding, No organomegaly, No hernia, Normal BS's, Nondistended, No mass/bruits, No McBurney tenderness : No CVA tenderness Extremities: No tenderness or effusion, Full ROM, normal strength in all extremities, No edema, Normal digits & nails Neuro/Psych: Alert/oriented, DTR's symmetric, Normal sensory exam, Normal motor strength, Judgement/insight normal, Mood normal, Normal gait, No focal deficits Misc: Normal back, No paraspinal tenderness ED Labs/Radiology/EKG Results - Lab Results Comments:: Reviewed - Radiology Results Comments:: NAD - EKG Interpretations EKG Time:: 13:38 Rate & Rhythm: 102; ST Comments:: LAD; non-specific st-t changes ED Septic Shock - . Is Septic Shock (SBP<90, OR Lactate>4 mmol\L) present?: No - <6hrs of presentation: Vital Signs: Vital Signs - 8 hr 10/30/18 13:02 Temp 97.7 F HR 112 RR 16 BP 160/112 O2 Sat % 100 ED Reassessment (Disposition) - Reassessment Reassessment Condition:: Improved - Diagnosis Diagnosis:: Tachycardia; Back Pain; Chest Pain; Hypertension; Dyspnea; Hypokalemia; Substance Abuse; UTI - Aftercare/Follow up Instructions Aftercare/Follow-Up Instructions:: Counseled pt regarding lab results/diagnosis & need follow up, Counseled pt & family regarding lab results/diagnosis & need follow up - Patient Disposition Discharge/Transfer:: Acute Care (other hosp) Accepting Physician:: Dr. Jhaveri Time Called:: 1500 Time Responded:: 15:00 Admitted to:: Telemetry Spoke to:: Dr. Jhaveri Admitting Medical Physician:: Dr. Jhaveri Condition at Disposition:: Stable, Improved (pt to be transferred via [facility] to [facility] as a direct admission to Telemetry Bed Unit )
[2018-10-30 13:53] LABS: BASOPHILE ABSOLUTE 0.4 Th/cumm (0-0.2); EOSINOPHILE ABSOLUTE 0.1 Th/cmm (0.1-0.4); HEMATOCRIT 47.5 % (41.0-60); HEMOGLOBIN 15.6 gm/dL (12-16); LYMPHOCYTE ABSOLUTE 1.5 Th/cmm (1.5-3.0); MEAN CELL VOLUME 87.9 fl (81-100); MEAN CORPUSCULAR HGB CONC 32.9 pg (28.0-36.0); MEAN PLATELET VOLUME 8.4 fl; MONOCYTE ABSOLUTE 0.9 Th/cmm (0.3-1.0); NEUTROPHILE ABSOLUTE 4.1 Th/cmm (1.8-8.0); PLATELET COUNT 335 Th/cmm (150-400); RED CELL DISTRIBUTION WIDTH 12.5 % (11.5-20.0)
[2018-10-30 13:55] LABS: % BASOPHILS 5.3 % (0.0-2.0); % EOSINOPHILS 0.8 % (0.0-5.0); % LYMPHOCYTES 21.5 % (20.0-50.0); % MONOCYTES 12.8 % (2.0-10.0); % NEUTROPHILS 59.6 % (40.0-80.0)
[2018-10-30 13:59] LABS: ALB/GLOB RATIO 1.1 (1.0-1.8); ALBUMIN 3.9 gm/dL (3.7-5.3); ALKALINE PHOSPHATASE 77 U/L (34-104); ANION GAP 11.6 (7.0-16.0); BILIRUBIN,TOTAL 0.4 mg/dL (0.3-1.0); BUN - UREA NITROGEN 13 mg/dL (7-25); CALCIUM SERUM 9.1 mg/dL (8.6-10.3); CARBON DIOXIDE 25.7 mEq/L (21.0-31.0); CHLORIDE 103 mEq/L (98-107); CHOLESTEROL 159 mg/dL (<200); CREATININE - SERUM 0.7 mg/dL (0.6-1.2); CREATININE KINASE 82 U/L (30-223); GFR AFRICAN-AMERICAN > 60.0 ml/min (>90); GFR NON AFRICAN-AMERICAN > 60.0 ml/min; GLUCOSE 93 mg/dL (70-105); HDL -HIGH DENSITY LIPOPROTEIN 60 mg/dL (23-92); POTASSIUM SERUM 3.3 mEq/L (3.5-5.1); SGOT 40 U/L (13-39); SGPT/ALT 49 U/L (7-52); SODIUM SERUM 137 mEq/L (136-145); TOTAL PROTEIN,SERUM 7.6 gm/dL (6.0-8.3); TRIGLYCERIDES 114 mg/dL (<150)
[2018-10-30 14:13] LABS: DDIMER QUANT 308 ng/mL (100-400)
[2018-10-30] MEDS ORDERED: Potassium Chloride 20 mEq ER Tab PO ONE ×2 (14:21→15:09)
[2018-10-30] MEDS ORDERED: Aspirin 81mg Chewable Tab PO STA (14:24)
[2018-10-30] MEDS ORDERED: NITROGLYCERIN OINT 2% 1 INCH PACKET TP STA (14:25)
[2018-10-30] MEDS ORDERED: IOHEXOL 350mgI/mL 150mL IV ONE (14:29)
[2018-10-30] MEDS ORDERED: NITROGLYCERIN OINT 2% 1 INCH PACKET TP ONE (15:08)
[2018-10-30] MEDS ORDERED: Aspirin 81mg Chewable Tab ONE (15:08)
[2018-10-30 16:29] LABS: URINE SOURCE RANDOM
[2018-10-30 16:34] LABS: URINE BILIRUBIN NEGATIVE (NEGATIVE); URINE BLOOD LARGE (NEGATIVE); URINE GLUCOSE (UA) NEGATIVE (NEGATIVE); URINE KETONE NEGATIVE (NEGATIVE); URINE LEUKOCYTE ESTERASE NEGATIVE (NEGATIVE); URINE MICROSCOPIC INDICATED? YES; URINE NITRATE NEGATIVE (NEGATIVE); URINE PH 6.5 (4.6 - 8.0); URINE PROTEIN NEGATIVE (NEGATIVE); URINE UROBILINOGEN 0.2 E.U./dL (0.2 - 1.0)
[2018-10-30 16:40] LABS: URINE CLARITY CLEAR (CLEAR); URINE COLOR YELLOW
[2018-10-30 16:43] LABS: URINE BACTERIA 1+ /hpf (NONE SEEN); URINE EPITHELIAL CELLS MODERATE /lpf (FEW)
[2018-10-30 16:44] LABS: AMPHETAMINE URINE POSITIVE (NEGATIVE); BARBITURATES URINE NEGATIVE (NEGATIVE); COCAINE METABOLITE QUAL URINE NEGATIVE (NEGATIVE); METHAMPHETAMINES QUAL URINE POSITIVE (NEGATIVE); OPIATES (MORPHINE) QUAL. URINE POSITIVE (NEGATIVE); PHENCYCLIDINE (PCP) URINE NEGATIVE (NEGATIVE); TRICYCLICS (TCA) QUAL. URINE NEGATIVE (NEGATIVE)
[2018-10-30 16:45] LABS: BENZODIAZEPINES QUAL URINE NEGATIVE (NEGATIVE); CANNABINOID THC POSITIVE (NEGATIVE); METHADONE URINE NEGATIVE (NEGATIVE)
[2018-10-30] MEDS ORDERED: cefTRIAXone 1 GM in Sodium Chloride 0.9% 50 ML IV ONE (16:59)
--- NOTE | 2018-10-31 08:54 | Diagnostic Imaging Report ---
CT Chest PE study Indication: Chest pain, hypertension, elevated d-dimer Comparison: None, Technique: Axial images were obtained from the base of the neck to the upper abdomen, following administration of IV contrast, PE protocol. Multiplanar reconstructions were made. total DLP: 425, CTDI16 FINDINGS: No evidence of mediastinal lymphadenopathy. No evidence of an aortic aneurysm. The heart size is normal. No pericardial effusion identified. Evaluation of the pulmonary arterial vasculature is limited due to suboptimal contrast opacification. No pulmonary embolus is identified. Evaluation the lungs demonstrates mild hypoventilatory and atelectatic changes. No focal consolidation or effusions. The upper abdomen demonstrates no acute abnormalities. Mild degenerative changes of the spine are noted. There is mild scoliosis. IMPRESSION: Suboptimal is opacification of the pulmonary arterial vasculature, however, no evidence of pulmonary embolus. Hypoventilatory and atelectatic lung changes. No focal consolidation identified. No evidence of an aneurysm.
== END 2018-10-30 21:35 | disposition short-term general hospital (02) ==
LOC: ER 12:45
DX: I10 Essential (primary) hypertension (principal); E87.6 Hypokalemia; R07.89 Other chest pain; N39.0 Urinary tract infection, site not specified; F19.10 Other psychoactive substance abuse, uncomplicated; M54.9 Dorsalgia, unspecified; R00.0 Tachycardia, unspecified; J44.9 Chronic obstructive pulmonary disease, unspecified; M19.90 Unspecified osteoarthritis, unspecified site; F17.200 Nicotine dependence, unspecified, uncomplicated; Z90.49 Acquired absence of other specified parts of digestive tract
CPT/HCPCS: 36415-UA; 71275-TC; 80053-TC; 80061-TC; 80307; 81001-TC; 82550-TC; 83880-TC; 84484-TC; 84703-TC; 85025-TC; 85379-TC; 85610-TC; 87086-90; 93005; 94760; 96374; J2270; Z7610

== ENCOUNTER 2019-05-06 20:48 | Emergency (ER) | payer MEDICAID ==
--- NOTE | 2019-05-06 21:31 | ED Physician Chart ---
ED Chief Complaint/HPI - Patient Information Date Seen:: 05/06/19 Time Seen:: 21:31 Chief Complaint:: Right elbow pain History of Present Illness:: 44 yo female accidentally hit her right elbow on a door knob 1 month ago. The pain subsided initially and recurred when she was lifting her daughter today. Allergies:: Allergies Allergy/AdvReac Type Severity Reaction Status Date / Time No Known Allergies Allergy Verified 06/17/18 23:53 ED Review of Systems - Review of Systems General/Constitutional: No fever Skin: No rash Head: No headache Eyes: No pain ENT: No nasal drainage Neck: No neck pain Cardio Vascular: No chest pain Pulmonary: No SOB GI: No nausea, No vomiting Musculoskeletal: Bone or joint pain Neurological: No focal symptoms ED Past Medical History - Past Medical History Past Medical History: HTN, Other (fibromyalgia) Social History: Smoker, No Alcohol, Illicit Drug Use (marijuana) Family Medical History - Family Member Father History Unknown: Yes Ethnicity: Non- Living Status: Still Living Hx Family Hypertension: Yes Hx Family Diabetes: Yes Mother Ethnicity: Living Status: Still Living Hx Family Cancer: Yes (BREAST) ED Physical Exam - Physical Examination General/Constitutional: Awake, Alert Head: Atraumatic Eyes: PERRL Skin: No skin lesions ENMT: Nasal exam nl Neck: No nuchal rigidity Respiratory: Clear to Auscultation Cardio Vascular: RRR, No murmur, gallop, rubs, NL S1 S2 GI: No tenderness/rebounding/guarding Other Extremities comments:: Right posterior, ulnar and radial elbow tenderness Neuro/Psych: No focal deficits ED Labs/Radiology/EKG Results - Radiology Results Results: Right elbow x ray: no bony fracture ED Assessment - Assessment General Assessment: Right elbow joint sprain Assessment/Comments:: Right elbow X ray Toradol 30 mg IM ED Septic Shock - . Is Septic Shock (SBP<90, OR Lactate>4 mmol\L) present?: No ED Reassessment (Disposition) - Reassessment Reassessment Condition:: Improved - Aftercare/Follow up Instructions Notes:: D/c home Right elbow brace Ibuprofen prn F/u PCP - Patient Disposition Discharge/Transfer:: Home
--- NOTE | 2019-05-07 08:47 | Diagnostic Imaging Report ---
Right elbow 3 views Indication: pain Comparison: none Findings: No evidence of acute fracture or dislocation. No joint effusion. No focal soft tissue swelling. Impression: No evidence of an acute fracture. In the setting of trauma, if clinical symptoms persist and there is continued concern for an occult fracture, follow up exams in 5-7 days is suggested.
== END 2019-05-06 22:08 | disposition home or self-care (01) ==
LOC: ER 20:48
DX: S53.401A Unspecified sprain of right elbow, initial encounter (principal); I10 Essential (primary) hypertension; F17.200 Nicotine dependence, unspecified, uncomplicated; W22.8XXA Striking against or struck by other objects, initial encounter; Y93.89 Activity, other specified; Y92.89 Other specified places as the place of occurrence of the external cause; Y99.8 Other external cause status
CPT/HCPCS: 99283; 96372; 73080; J1885; Z7502

== ENCOUNTER 2019-06-18 03:23 | Emergency (ER) | payer MEDICAID ==
--- NOTE | 2019-06-18 03:52 | ED Physician Chart ---
ED Chief Complaint/HPI - Patient Information Date Seen:: 06/18/19 Time Seen:: 03:47 Chief Complaint:: Right flank pain History of Present Illness:: 44 yo female had right flank pain for 1 day. Pt denied fever, nausea or vomiting. Pt had urinary frequency but denied dysuria. Allergies:: Allergies Allergy/AdvReac Type Severity Reaction Status Date / Time No Known Allergies Allergy Verified 06/17/18 23:53 Vitals:: Vital Signs - 8 hr 06/18/19 03:25 Temp 98.2 F HR 96 RR 20 BP 128/79 O2 Sat % 98 ED Review of Systems - Review of Systems General/Constitutional: No fever, No chills Skin: No rash Head: No headache Eyes: No pain ENT: No nasal drainage Neck: No neck pain Cardio Vascular: No chest pain GI: Pain G/U: No hematuria Musculoskeletal: No bone or joint pain Neurological: No focal symptoms ED Past Medical History - Past Medical History Past Medical History: HTN, Other (fibromyalgia) Social History: Smoker, No Alcohol, Illicit Drug Use Surgical History: Appendectomy, other (tubal ligation) Family Medical History - Family Member Father History Unknown: Yes Ethnicity: Non- Living Status: Still Living Hx Family Hypertension: Yes Hx Family Diabetes: Yes Mother Ethnicity: Living Status: Still Living Hx Family Cancer: Yes (BREAST) ED Physical Exam - Physical Examination General/Constitutional: Awake, Alert Head: Atraumatic Eyes: PERRL, EOMI Skin: No skin lesions ENMT: Nasal exam nl Neck: No nuchal rigidity Respiratory: Clear to Auscultation Cardio Vascular: RRR, No murmur, gallop, rubs, NL S1 S2 Other GI comments:: Right flank pain, but no right CVA percussion tenderness Extremities: normal strength in all extremities Neuro/Psych: No focal deficits ED Labs/Radiology/EKG Results - Lab Results Results: Laboratory Last Values WBC 9.7 Th/cmm (4.8-10.8) 06/18/19 03:45 RBC 4.48 Mil/cmm (3.80-5.10) 06/18/19 03:45 Hgb 13.7 gm/dL (12-16) 06/18/19 03:45 Hct 39.5 % (41.0-60) L 06/18/19 03:45 MCV 88.1 fl (81-100) 06/18/19 03:45 MCH 30.7 pg (27.0-31.0) 06/18/19 03:45 MCHC Differential 34.8 pg (28.0-36.0) 06/18/19 03:45 RDW 12.2 % (11.5-20.0) 06/18/19 03:45 Plt Count 363 Th/cmm (150-400) 06/18/19 03:45 MPV 8.2 fl 06/18/19 03:45 Neutrophils % 62.4 % (40.0-80.0) 06/18/19 03:45 Lymphocytes % 30.0 % (20.0-50.0) 06/18/19 03:45 Monocytes % 4.4 % (2.0-10.0) 06/18/19 03:45 Eosinophils % 3.2 % (0.0-5.0) 06/18/19 03:45 Basophils % 0.0 % (0.0-2.0) 06/18/19 03:45 Sodium 139 mEq/L (136-145) 06/18/19 03:45 Potassium 3.5 mEq/L (3.5-5.1) 06/18/19 03:45 Chloride 103 mEq/L (98-107) 06/18/19 03:45 Carbon Dioxide 26.3 mEq/L (21.0-31.0) 06/18/19 03:45 Anion Gap 13.2 (7.0-16.0) 06/18/19 03:45 BUN 14 mg/dL (7-25) 06/18/19 03:45 Creatinine 0.7 mg/dL (0.6-1.2) 06/18/19 03:45 Est GFR ( Amer) > 60.0 ml/min (>90) 06/18/19 03:45 Est GFR (Non-Af Amer) > 60.0 ml/min 06/18/19 03:45 BUN/Creatinine Ratio 20.0 06/18/19 03:45 Glucose 108 mg/dL (70-105) H 06/18/19 03:45 Calcium 8.9 mg/dL (8.6-10.3) 06/18/19 03:45 Total Bilirubin 0.4 mg/dL (0.3-1.0) 06/18/19 03:45 AST 31 U/L (13-39) 06/18/19 03:45 ALT 36 U/L (7-52) 06/18/19 03:45 Alkaline Phosphatase 57 U/L (34-104) 06/18/19 03:45 Total Protein 6.5 gm/dL (6.0-8.3) 06/18/19 03:45 Albumin 3.8 gm/dL (3.7-5.3) 06/18/19 03:45 Globulin 2.7 gm/dL 06/18/19 03:45 Albumin/Globulin Ratio 1.4 (1.0-1.8) 06/18/19 03:45 Amylase 40 U/L (29-103) 06/18/19 03:45 Lipase 23 U/L (11-82) 06/18/19 03:45 Urine Source RANDOM 06/18/19 00:50 Urine Color YELLOW 06/18/19 00:50 Urine Clarity HAZY (CLEAR) 06/18/19 00:50 Urine pH 5.5 (4.6 - 8.0) 06/18/19 00:50 Ur Specific [place] >= 1.030 (1.005-1.030) 06/18/19 00:50 Urine Protein NEGATIVE mg/dL (NEGATIVE) 06/18/19 00:50 Urine Glucose (UA) NEGATIVE mg/dL (NEGATIVE) 06/18/19 00:50 Urine Ketones NEGATIVE mg/dL (NEGATIVE) 06/18/19 00:50 Urine Blood NEGATIVE (NEGATIVE) 06/18/19 00:50 Urine Nitrate NEGATIVE (NEGATIVE) 06/18/19 00:50 Urine Bilirubin NEGATIVE (NEGATIVE) 06/18/19 00:50 Urine Urobilinogen 0.2 E.U./dL (0.2 - 1.0) 06/18/19 00:50 Ur Leukocyte Esterase NEGATIVE (NEGATIVE) 06/18/19 00:50 Urine RBC 2-5 /hpf (0-5) 06/18/19 00:50 Urine WBC 2-5 /hpf (0-5) 06/18/19 00:50 Ur Epithelial Cells FEW /lpf (FEW) 06/18/19 00:50 Urine Bacteria FEW /hpf (NONE SEEN) 06/18/19 00:50 Urine Test NEGATIVE 06/18/19 03:45 POC Ur Test Negative 06/18/19 04:22 Urine Opiates Screen NEGATIVE (NEGATIVE) 06/18/19 03:50 Urine Methadone Screen NEGATIVE (NEGATIVE) 06/18/19 03:50 Ur Barbiturates Screen NEGATIVE (NEGATIVE) 06/18/19 03:50 Ur Tricyclics Screen NEGATIVE (NEGATIVE) 06/18/19 03:50 Ur Phencyclidine Scrn NEGATIVE (NEGATIVE) 06/18/19 03:50 Amphetamines Screen POSITIVE (NEGATIVE) H 06/18/19 03:50 U Methamphetamines Scrn POSITIVE (NEGATIVE) H 06/18/19 03:50 U Benzodiazepines Scrn NEGATIVE (NEGATIVE) 06/18/19 03:50 U Cocaine Metab Screen NEGATIVE (NEGATIVE) 06/18/19 03:50 U Cannabinoids Screen POSITIVE (NEGATIVE) H 06/18/19 03:50 - Radiology Results Results: CT abdomen/pelvis wo contrast: unremarkable ED Assessment - Assessment General Assessment: Right flank pain Polysubstance abuse Assessment/Comments:: CBC, CMP, lipase, amylase CT abdomen/pelvis wo contrast Tylenol 650 mg PO ED Septic Shock - . Is Septic Shock (SBP<90, OR Lactate>4 mmol\L) present?: No - <6hrs of presentation: Vital Signs: Vital Signs - 8 hr 06/18/19 03:25 Temp 98.2 F HR 96 RR 20 BP 128/79 O2 Sat % 98 ED Reassessment (Disposition) - Reassessment Reassessment Condition:: Improved - Patient Disposition Discharge/Transfer:: Home
[2019-06-18 03:54] LABS: URINE SOURCE RANDOM
[2019-06-18 03:56] LABS: URINE BILIRUBIN NEGATIVE (NEGATIVE); URINE BLOOD NEGATIVE (NEGATIVE); URINE GLUCOSE (UA) NEGATIVE (NEGATIVE); URINE KETONE NEGATIVE (NEGATIVE); URINE LEUKOCYTE ESTERASE NEGATIVE (NEGATIVE); URINE NITRATE NEGATIVE (NEGATIVE); URINE PH 5.5 (4.6 - 8.0); URINE PROTEIN NEGATIVE (NEGATIVE); URINE UROBILINOGEN 0.2 E.U./dL (0.2 - 1.0)
[2019-06-18 04:00] LABS: % EOSINOPHILS 3.2 % (0.0-5.0); % MONOCYTES 4.4 % (2.0-10.0); % NEUTROPHILS 62.4 % (40.0-80.0); EOSINOPHILE ABSOLUTE 0.3 Th/cmm (0.1-0.4); HEMATOCRIT 39.5 % (41.0-60); HEMOGLOBIN 13.7 gm/dL (12-16); LYMPHOCYTE ABSOLUTE 2.9 Th/cmm (1.5-3.0); MEAN CELL VOLUME 88.1 fl (81-100); MEAN CORPUSCULAR HEMOGLOBIN 30.7 pg (27.0-31.0); MEAN CORPUSCULAR HGB CONC 34.8 pg (28.0-36.0); MONOCYTE ABSOLUTE 0.4 Th/cmm (0.3-1.0); NEUTROPHILE ABSOLUTE 6.1 Th/cmm (1.8-8.0); PLATELET COUNT 363 Th/cmm (150-400); RED BLOOD COUNT 4.48 Mil/cmm (3.80-5.10); RED CELL DISTRIBUTION WIDTH 12.2 % (11.5-20.0); WHITE BLOOD COUNT 9.7 Th/cmm (4.8-10.8)
[2019-06-18 04:09] LABS: URINE CLARITY HAZY (CLEAR); URINE COLOR YELLOW; URINE EPITHELIAL CELLS FEW /lpf (FEW); URINE MICROSCOPIC INDICATED? YES
[2019-06-18 04:10] LABS: URINE BACTERIA FEW /hpf (NONE SEEN)
[2019-06-18 04:12] LABS: AMPHETAMINE URINE POSITIVE (NEGATIVE); BARBITURATES URINE NEGATIVE (NEGATIVE); COCAINE METABOLITE QUAL URINE NEGATIVE (NEGATIVE); METHAMPHETAMINES QUAL URINE POSITIVE (NEGATIVE); OPIATES (MORPHINE) QUAL. URINE NEGATIVE (NEGATIVE); PHENCYCLIDINE (PCP) URINE NEGATIVE (NEGATIVE); TRICYCLICS (TCA) QUAL. URINE NEGATIVE (NEGATIVE)
[2019-06-18 04:13] LABS: BENZODIAZEPINES QUAL URINE NEGATIVE (NEGATIVE); CANNABINOID THC POSITIVE (NEGATIVE); METHADONE URINE NEGATIVE (NEGATIVE)
[2019-06-18 04:15] LABS: ALB/GLOB RATIO 1.4 (1.0-1.8); ALBUMIN 3.8 gm/dL (3.7-5.3); ALKALINE PHOSPHATASE 57 U/L (34-104); AMYLASE SERUM 40 U/L (29-103); ANION GAP 13.2 (7.0-16.0); BILIRUBIN,TOTAL 0.4 mg/dL (0.3-1.0); BUN - UREA NITROGEN 14 mg/dL (7-25); CALCIUM SERUM 8.9 mg/dL (8.6-10.3); CARBON DIOXIDE 26.3 mEq/L (21.0-31.0); CHLORIDE 103 mEq/L (98-107); CREATININE - SERUM 0.7 mg/dL (0.6-1.2); GFR AFRICAN-AMERICAN > 60.0 ml/min (>90); GFR NON AFRICAN-AMERICAN > 60.0 ml/min; GLUCOSE 108 mg/dL (70-105); LIPASE 23 U/L (11-82); POTASSIUM SERUM 3.5 mEq/L (3.5-5.1); SGOT 31 U/L (13-39); SGPT/ALT 36 U/L (7-52); SODIUM SERUM 139 mEq/L (136-145); TOTAL PROTEIN,SERUM 6.5 gm/dL (6.0-8.3)
--- NOTE | 2019-06-18 09:40 | Diagnostic Imaging Report ---
Exam: CT examination abdomen pelvis HISTORY: Right flank pain Total DLP equals 670 CTDI equals 13.2 FINDINGS: Multiple contiguous thin section of the abdomen pelvis obtained from lower thorax to the pubic symphysis without the administration of intravenous or oral contrast material. No prior studies available comparison. The study demonstrates normal aeration of lung parenchyma the bases. The liver and spleen are normal. The gallbladder is intact. The pancreas is normal. Adrenal glands are normal. The kidneys demonstrate no evidence of obstructive uropathy or nephrolithiasis. The bowel gas diffusion is nonspecific. There is no evidence of diverticular disease of diverticulitis. The uterus is prominent. Question fibroid infiltration. Appendix not visualized. There is a question of the left adnexal cyst. Clinical correlation ultrasound examination might be helpful. IMPRESSION: Essentially unremarkable summation abdomen. Nonvisualized appendix no evidence for secondary signs of appendicitis Question of small left adnexal cyst.
== END 2019-06-18 06:08 | disposition home or self-care (01) ==
LOC: ER 03:23
DX: F19.10 Other psychoactive substance abuse, uncomplicated (principal); R10.9 Unspecified abdominal pain; I10 Essential (primary) hypertension; F17.210 Nicotine dependence, cigarettes, uncomplicated; Z90.49 Acquired absence of other specified parts of digestive tract
CPT/HCPCS: 36415-UA; 80053-TC; 80307; 81001-TC; 81025-TC; 82150-TC; 83690-TC; 85025-TC; Z7610